=== PATIENT | female | born 1975 ===

== ENCOUNTER 2016-12-12 21:19 | Emergency (ER) | payer MEDICAID, OTHER ==
[2016-12-12 21:39] VITALS: RESP 20
[2016-12-12 22:20] LABS: RBC URINE 16 /hpf (0-3); URINE BACTERIA FEW (<OCC); URINE BILIRUBIN NEGATIVE (NEGATIVE); URINE COLOR Yellow (YELLOW); URINE GLUCOSE (UA) NORMAL (Normal); URINE KETONE NEGATIVE (NEGATIVE); URINE LEUKOCYTE ESTERASE 2+ Leu/uL (Negative); URINE PROTEIN NEGATIVE (NEGATIVE); URINE UROBILINOGEN NORMAL mg/dL (0.2-1.0); WBC URINE 15 /hpf (0-5)
[2016-12-12 22:23] LABS: URINE BLOOD 2+ (NEGATIVE)
[2016-12-12] MEDS ORDERED: Naproxen 550 mg Tab PO STA (22:33)
--- NOTE | 2016-12-12 22:34 | C.PDOC ---
Time Seen by Provider: 12/12/16 21:56 Chief Complaint (Nursing): Cough, Cold, Congestion History Per: Patient, Family Onset/Duration Of Symptoms: Days (2) Current Symptoms Are (Timing): Still Present Associated Symptoms: Cough, Sputum, Nasal Congestion Severity: Moderate Additional History Per: Prior Records Past Medical History Reviewed: Historical Data, Nursing Documentation, Vital Signs Vital Signs: Last Vital Signs Temp 98.4 F 12/12/16 21:38 Pulse 72 12/12/16 21:38 Resp 20 12/12/16 21:38 BP 106/68 12/12/16 21:38 Pulse Ox 98 12/12/16 21:38 - Medical History PMH: No Chronic Diseases Family History: States: Unknown Family Hx - Social History Hx Tobacco Use: Yes Hx Alcohol Use: No Hx Substance Use: No - Immunization History Hx Tetanus Toxoid Vaccination: No Hx Influenza Vaccination: No Hx Pneumococcal Vaccination: No Review Of Systems Except As Marked, All Systems Reviewed And Found Negative. Constitutional: Negative for: Fever, Weakness ENT: Positive for: Nose Congestion Cardiovascular: Negative for: Chest Pain Respiratory: Positive for: Cough, Sputum. Negative for: Shortness of Breath, Hemoptysis Gastrointestinal: Positive for: Abdominal Pain (suprapubic). Negative for: Vomiting, Diarrhea Genitourinary: Positive for: Dysuria Musculoskeletal: Negative for: Neck Pain, Back Pain Skin: Negative for: Rash Neurological: Negative for: Weakness, Numbness, Seizures, Altered Mental Status Physical Exam - Physical Exam Appears: Non-toxic, No Acute Distress Skin: Normal Color, Warm, Dry, No Rash Head: Atraumatic, Normacephalic Eye(s): bilateral: Normal Inspection, PERRL, EOMI Ear(s): Bilateral: Normal Throat: Normal Neck: Normal ROM, Supple Cardiovascular: Rhythm Regular Respiratory: Normal Breath Sounds, No Accessory Muscle Use Gastrointestinal/Abdominal: Soft, No Tenderness Back: No CVA Tenderness Extremity: Normal ROM, No Pedal Edema, No Calf Tenderness Neurological/Psych: Oriented x3, Normal Motor, Normal Sensation ED Course And Treatment - Laboratory Results Interpretation Of Abnormal: Possible UTI Urine POC: Negative O2 Sat by Pulse Oximetry: 98 Pulse Ox Interpretation: Normal - Radiology CXR: Interpreted by Me, Viewed By Me CXR Interpretation: Yes: No Acute Disease Disposition Counseled Patient/Family Regarding: Studies Performed, Diagnosis, Need For Followup, Rx Given, Smoking Cessation - Disposition Referrals: [facility] [Outside] Disposition: HOME/ ROUTINE Disposition Time: 22:34 Condition: STABLE Additional Instructions: Drink plenty of fluids. Stop smoking. Follow up in the clinic for further evaluation and treatment. Return to the ER if you develop shortness of breath, fever, vomiting, worsening of symptoms or if you have any other concerns. Prescriptions: Sulfamethoxazole/Trimethoprim [Bactrim DS 800 mg-160 mg] 1 tab PO BID #10 tab Instructions: Cold Symptoms (ED), Urinary Tract Infection in Women (ED) Print Language: MALTESE - Clinical Impression Clinical Impression: Bronchitis, UTI (urinary tract infection)
[2016-12-12] MEDS ORDERED: Naproxen 550 mg Tab PO ONE (22:48)
[2016-12-12 22:51] VITALS: BP 111/71; PULSE 77; TEMP 98.1; O2SAT 99
--- NOTE | 2016-12-13 08:15 | RAD ---
HISTORY: Productive cough COMPARISON: No prior. TECHNIQUE: Chest PA and lateral FINDINGS: LUNGS: Mild venous congestion. Patchy increased markings at the medial right lung base may represent superimposed atelectasis and or subtle infiltrate. Bibasilar breast and nipple shadows. PLEURA: No significant pleural effusion identified. No pneumothorax apparent. CARDIOVASCULAR: Normal. OSSEOUS STRUCTURES: No significant abnormalities. VISUALIZED UPPER ABDOMEN: Normal. OTHER FINDINGS: None. IMPRESSION: Mild venous congestion. Patchy increased markings at the medial right lung base may represent superimposed atelectasis and or subtle infiltrate. Bibasilar breast and nipple shadows.
== END 2016-12-12 22:53 | disposition home or self-care (01) ==
LOC: C.ER 21:19
DX: J40 Bronchitis, not specified as acute or chronic (principal); Z72.0 Tobacco use; N39.0 Urinary tract infection, site not specified

== ENCOUNTER 2017-03-14 22:23 | Emergency (ER) | payer OTHER ==
[2017-03-14 22:33] VITALS: BP 116/78; PULSE 74; RESP 18; TEMP 98.7; O2SAT 99
[2017-03-14 22:57] LABS: RBC URINE 8 /hpf (0-3); URINE BACTERIA RARE (<OCC); URINE BILIRUBIN NEGATIVE (NEGATIVE); URINE COLOR Yellow (YELLOW); URINE GLUCOSE (UA) NORMAL (Normal); URINE KETONE NEGATIVE (NEGATIVE); URINE LEUKOCYTE ESTERASE NEG Leu/uL (Negative); URINE PROTEIN NEGATIVE (NEGATIVE); WBC URINE 1 /hpf (0-5)
[2017-03-14 22:58] LABS: URINE BLOOD 2+ (NEGATIVE)
--- NOTE | 2017-03-14 23:18 | C.PDOC ---
History Of Present Illness 41 y/o female c/o suprapubic pain since her onset of menses 4 days prior. Notes usually getting the same pain with her period, yet this lasted longer which concerned her. Patient reports increased suprapubic pressure during urination. Denies dysuria, vaginal discharge, fever, chills, nausea, vomiting, or any other complaints. Patient is still bleeding due to menses. Took no medication for pain. Time Seen by Provider: 03/14/17 22:35 Chief Complaint (Nursing): Female Genitourinary History Per: Patient History/Exam Limitations: no limitations Onset/Duration Of Symptoms: Days (4) Current Symptoms Are (Timing): Still Present Severity: Mild Quality Of Discomfort: Gas Associated Symptoms: denies: Fever, Chills Alleviating Factors: None Recent travel outside of the [place]: No Additional History Per: Patient Abnormal Vaginal Bleeding: No Past Medical History Reviewed: Historical Data, Nursing Documentation, Vital Signs Vital Signs: Last Vital Signs Temp 98.7 F 03/14/17 22:29 Pulse 74 03/14/17 22:29 Resp 18 03/14/17 22:29 BP 116/78 03/14/17 22:29 Pulse Ox 99 03/15/17 01:36 Family History: States: Unknown Family Hx - Social History Hx Tobacco Use: Yes Hx Alcohol Use: No Hx Substance Use: No - Immunization History Hx Tetanus Toxoid Vaccination: No Hx Influenza Vaccination: No Hx Pneumococcal Vaccination: No Review Of Systems Constitutional: Negative for: Fever, Chills Gastrointestinal: Positive for: Abdominal Pain (Suprapubic). Negative for: Nausea, Vomiting Genitourinary: Positive for: Vaginal Bleeding (Due to menses). Negative for: Dysuria, Vaginal Discharge Physical Exam - Physical Exam Appears: Non-toxic, No Acute Distress Skin: Warm, Dry Head: Atraumatic, Normacephalic Cardiovascular: Rhythm Regular Respiratory: Normal Breath Sounds, No Rales, No Rhonchi, No Wheezing Gastrointestinal/Abdominal: Soft, Tenderness (Mid-suprapubic area), No Guarding , No Rebound, Other (Obese) Pelvic: Other (Not performed due to menstral flow) Neurological/Psych: Oriented x3, Normal Speech, Normal Cognition ED Course And Treatment O2 Sat by Pulse Oximetry: 99 (RA) Pulse Ox Interpretation: Normal Progress Note: Impression: 41 y/o female c/o suparapubic pain since onset of menses 4 days ago. Plans: UA, Blood work up, Motrin. UA: negative for infection and . Patient is in no acute distress at this time. Patient advised she will feel better with Motrin and advised to follow up with PMD for further evaluation and to return if symtoms worsens. Disposition Counseled Patient/Family Regarding: Diagnosis, Need For Followup, Rx Given - Disposition Referrals: [email or web address] [Outside] [facility] [Outside] Disposition: HOME/ ROUTINE Disposition Time: 23:15 Condition: STABLE Additional Instructions: Kori motrin si dolor Sigue en la clinica de mujeres Regresa si peor Prescriptions: Ibuprofen [Motrin] 600 mg PO Q6H #30 tab Instructions: Pelvic Pain in Women (ED) Forms: [employer] (Syriac) Print Language: ROMANIAN - Clinical Impression Clinical Impression: Pelvic pain, Dysmenorrhea - Scribe Statement The provider has reviewed the documentation as recorded by the Princessibmicky polk All medical record entries made by the Princessibmicky were at my direction and personally dictated by me. I have reviewed the chart and agree that the record accurately reflects my personal performance of the history, physical exam, medical decision making, and the department course for this patient. I have also personally directed, reviewed, and agree with the discharge instructions and disposition.
== END 2017-03-14 23:24 | disposition home or self-care (01) ==
LOC: C.ER 22:23 → SUPCPDRO 22:23 → C.ER 23:24
DX: N94.6 Dysmenorrhea, unspecified (principal)

== ENCOUNTER 2017-12-08 11:44 | Emergency (ER) | payer OTHER ==
[2017-12-08 11:52] VITALS: O2SAT 98
[2017-12-08 12:34] LABS: SQUAMOUS EPITHIAL 1 /hpf (0-5); URINE BILIRUBIN NEGATIVE (NEGATIVE); URINE BLOOD 1+ (NEGATIVE); URINE CLARITY Clear (Clear); URINE COLOR Yellow (YELLOW); URINE GLUCOSE (UA) NORMAL (Normal); URINE LEUKOCYTE ESTERASE NEG Leu/uL (Negative); URINE PROTEIN NEGATIVE (NEGATIVE); URINE UROBILINOGEN NORMAL mg/dL (0.2-1.0)
[2017-12-08 12:44] LABS: HCG,QUALITATIVE URINE NEGATIVE (NEGATIVE)
--- NOTE | 2017-12-08 13:14 | C.PDOC ---
History Of Present Illness 42 y/o female presents to ED with complaints of lower abdominal pain for 3 days associated with urinary frequency. Patient states last bowel movement was earlier today and was normal. Patient reports she was recently tested for UTI and was given Cipro which she took 1 dose of but didnt think it was helping. Patient denies dysuria, vaginal bleeding, vaginal discharge, n/v/d, fever, back pain or any other complaints at this time. LMP 2 days ago as per patient. Time Seen by Provider: 12/08/17 12:36 Chief Complaint (Nursing): Abdominal Pain History Per: Patient, Wind Commissioning Technician (Abi Floyd) History/Exam Limitations: no limitations Onset/Duration Of Symptoms: Days Current Symptoms Are (Timing): Still Present Location Of Pain/Discomfort: Other (pelvic pain) Past Medical History Reviewed: Historical Data, Nursing Documentation, Vital Signs Vital Signs: Last Vital Signs Temp 98.2 F 12/08/17 16:19 Pulse 80 12/08/17 16:19 Resp 18 12/08/17 16:19 BP 112/72 12/08/17 16:19 Pulse Ox 98 12/08/17 16:19 - Medical History PMH: No Chronic Diseases Surgical History: No Surg Hx Family History: States: No Known Family Hx - Social History Hx Tobacco Use: Yes Hx Alcohol Use: No Hx Substance Use: No - Immunization History Hx Tetanus Toxoid Vaccination: No Hx Influenza Vaccination: No Hx Pneumococcal Vaccination: No Review Of Systems Constitutional: Negative for: Fever, Chills Gastrointestinal: Negative for: Nausea, Vomiting Genitourinary: Positive for: Frequency, Pelvic Pain. Negative for: Dysuria, Vaginal Discharge, Vaginal Bleeding Musculoskeletal: Negative for: Back Pain Skin: Negative for: Rash Neurological: Negative for: Weakness, Numbness Physical Exam - Physical Exam Appears: Non-toxic, No Acute Distress Skin: Warm, Dry, No Rash Head: Atraumatic, Normacephalic Eye(s): bilateral: Normal Inspection, EOMI Nose: Normal Oral Mucosa: Moist Neck: Normal ROM, Supple Cardiovascular: Rhythm Regular Respiratory: Normal Breath Sounds, No Rales, No Rhonchi, No Wheezing Gastrointestinal/Abdominal: Soft, Tenderness (suprapubic tenderness), No Guarding, No Rebound Back: No CVA Tenderness, No Vertebral Tenderness Extremity: Normal ROM Neurological/Psych: Oriented x3, Normal Speech, Normal Cognition ED Course And Treatment - Laboratory Results Result Diagrams: 12/08/17 13:21 12/08/17 13:21 O2 Sat by Pulse Oximetry: 98 (RA) Pulse Ox Interpretation: Normal Progress Note: Blood work, IV fluids, obstructive series and UA ordered. Toradol administered. On re eval patient states pain has improved. Tolerating PO. Afebrile. Abdomen remains soft, nontender. Discussed with pt signs and symptoms of concern and limitations of work up. Pt requests to be discharged noting she is asymptomatic. Instructed to return to ER if symptoms persist or worsen. Disposition - Disposition Referrals: [facility] [Outside] Disposition: HOME/ ROUTINE Disposition Time: 15:42 Condition: STABLE Additional Instructions: Increase you fluids and fiber in your diet. Follow up with PMD in 1-2 days. Return to ER if symptoms persist or worsen. Aumente denise lquidos y fibra en [place] dieta. Korey un seguimiento con PMD en 1-2 d as. Regrese a la nanda de emergencias si los sntomas persisten o empeoran. Prescriptions: Polyethylene Glycol 3350 [Miralax] 17 gm PO DAILY #85 gm Instructions: Acute Abdomen (Belly Pain), Adult (DC) Forms: [employer] (Cymro) Print Language: SYRIAN - Clinical Impression Clinical Impression: Abdominal pain - PA / JUDICIAL REPORTER / Resident Statement MD/DO has reviewed & agrees with the documentation as recorded. - Scribe Statement The provider has reviewed the documentation as recorded by the Scribe Mariel Overton All medical record entries made by the Princessibe were at my direction and personally dictated by me. I have reviewed the chart and agree that the record accurately reflects my personal performance of the history, physical exam, medical decision making, and the department course for this patient. I have also personally directed, reviewed, and agree with the discharge instructions and disposition.
[2017-12-08 13:29] LABS: BASO % 0.5 % (0.0-2.0); EOS # 0.1 K/uL (0.0-0.7); EOS % 1.2 % (0.0-4.0); HEMOGLOBIN 11.9 g/dL (11.0-16.0); LYMPH # 2.2 K/uL (1.0-4.3); LYMPH % 28.6 % (20.0-40.0); MEAN CELL VOLUME 90.4 fL (81.0-99.0); MEAN CORPUSCULAR HEMOGLOBIN 31.4 pg (27.0-31.0); MEAN CORPUSCULAR HGB CONC 34.7 g/dL (33.0-37.0); MEAN PLATELET VOLUME 8.2 fL (7.2-11.7); MONO # 0.5 K/uL (0.0-0.8); MONO % 6.3 % (0.0-10.0); NEUT # 4.9 K/uL (1.8-7.0); NEUT % 63.4 % (50.0-75.0); RBC 3.78 Mil/uL (3.80-5.20); RED CELL DISTRIBUTION WIDTH 12.8 % (11.5-14.5); WHITE BLOOD COUNT 7.8 K/uL (4.8-10.8)
[2017-12-08 13:43] LABS: ALB/GLOB RATIO 1.2 (1.0-2.1); ALBUMIN 3.9 g/dL (3.5-5.0); ALT/SGPT 27 U/L (9-52); AST/SGOT 17 U/L (14-36); BLOOD UREA NITROGEN 15 mg/dL (7-17); CALCIUM 9.1 mg/dl (8.6-10.4); GFR AFRICAN-AMERICAN > 60; GFR NON-AFRICAN AMERICAN > 60; LIPASE 39 U/L (23-300)
--- NOTE | 2017-12-08 14:48 | RAD ---
PROCEDURE: Radiographs of the chest and abdomen (obstructive series) HISTORY: abd pain COMPARISON: No prior. TECHNIQUE: AP radiograph of the chest, with upright and supine radiographs of the abdomen. FINDINGS: CHEST: Lungs: Clear. Cardiovascular: Normal size heart. No pulmonary vascular congestion. Pleura: No pleural fluid. No pneumothorax. Other findings: None. ABDOMEN AND PELVIS: Bowel: Unremarkable bowel gas pattern. No evidence of mechanical obstruction. Free air: None. Bones: Unremarkable. Other findings: None. IMPRESSION: Unremarkable radiographs of chest and abdomen. No evidence of mechanical bowel obstruction.
[2017-12-08 16:23] VITALS: BP 112/72; PULSE 80; RESP 18; TEMP 98.2
== END 2017-12-08 16:23 | disposition home or self-care (01) ==
LOC: C.ER 11:44
DX: R10.30 Lower abdominal pain, unspecified (principal)
CPT/HCPCS: 74022; 80053; 81001; 83690; 84703; 85025; 96374; 99284; J1885

== ENCOUNTER 2018-05-06 15:52 | Emergency (ER) | payer SELFPAY ==
[2018-05-06 16:27] VITALS: O2SAT 100
[2018-05-06] MEDS ORDERED: Sodium Chloride 0.9% 1,000 ML IV ONE (16:38)
[2018-05-06 16:57] LABS: BASO # 0.1 K/uL (0.0-0.2); BASO % 0.7 % (0.0-2.0); EOS # 0.1 K/uL (0.0-0.7); EOS % 1.6 % (0.0-4.0); HEMOGLOBIN 12.1 g/dL (11.0-16.0); LYMPH # 2.5 K/uL (1.0-4.3); LYMPH % 32.5 % (20.0-40.0); MEAN CELL VOLUME 89.1 fL (81.0-99.0); MEAN CORPUSCULAR HEMOGLOBIN 30.8 pg (27.0-31.0); MEAN CORPUSCULAR HGB CONC 34.6 g/dL (33.0-37.0); MEAN PLATELET VOLUME 8.4 fL (7.2-11.7); MONO # 0.4 K/uL (0.0-0.8); MONO % 5.8 % (0.0-10.0); NEUT # 4.6 K/uL (1.8-7.0); NEUT % 59.4 % (50.0-75.0); RBC 3.92 Mil/uL (3.80-5.20); RED CELL DISTRIBUTION WIDTH 12.7 % (11.5-14.5); WHITE BLOOD COUNT 7.7 K/uL (4.8-10.8)
[2018-05-06 16:59] LABS: SQUAMOUS EPITHIAL 1 /hpf (0-5); URINE BILIRUBIN NEGATIVE (NEGATIVE); URINE BLOOD 3+ (NEGATIVE); URINE CLARITY Clear (Clear); URINE COLOR Yellow (YELLOW); URINE GLUCOSE (UA) NORMAL (Normal); URINE LEUKOCYTE ESTERASE NEG Leu/uL (Negative); URINE PROTEIN NEGATIVE (NEGATIVE); URINE UROBILINOGEN NORMAL mg/dL (0.2-1.0)
[2018-05-06 17:19] LABS: ALB/GLOB RATIO 1.4 (1.0-2.1); ALBUMIN 4.1 g/dL (3.5-5.0); ALT/SGPT 24 U/L (9-52); AST/SGOT 13 U/L (14-36); BLOOD UREA NITROGEN 13 mg/dL (7-17); CALCIUM 9.1 mg/dl (8.6-10.4); GFR NON-AFRICAN AMERICAN > 60; LIPASE 49 U/L (23-300)
[2018-05-06] MEDS ORDERED: Sodium Chloride 0.9% 1,000 ML ONE (17:46)
[2018-05-06] MEDS ORDERED: Iodixanol 320 MG/ML 100 ML BOTTLE IV ONE (18:16)
--- NOTE | 2018-05-06 18:24 | C.PDOC ---
Addendum entered and electronically signed by Cele Gregory MD 05/06/18 19:46: Disposition Counseled Patient/Family Regarding: Studies Performed, Diagnosis, Need For Followup, Rx Given Clinical Impression: Abdominal pain, Uterine fibroid Disposition: HOME/ ROUTINE Disposition Time: 19:00 Condition: FAIR Instructions: Acute Abdomen (Belly Pain), Adult (DC), Uterine Fibroids (DC) Referrals: [facility] [Outside] [facility] [Outside] Stand Alone Forms: [employer] (Bulgarian) Print Language: SLOVENIAN Addendum entered and electronically signed by Cele Gregory MD 05/06/18 19:42: Disposition Counseled Patient/Family Regarding: Studies Performed, Diagnosis, Need For Followup Clinical Impression: Abdominal pain, Uterine fibroid Disposition: HOME/ ROUTINE Disposition Time: 19:00 Condition: FAIR Instructions: Uterine Fibroids (DC), Acute Abdomen (Belly Pain), Adult (DC) Referrals: [facility] [Outside] [facility] [Outside] Stand Alone Forms: [employer] (Bulgarian) Addendum Addendum: 05/06/18 19:41 Upon provider reevaluation patient is feeling better, is medically stable, and requires no further treatment in the ED at this time. Patient will be discharged home . Counseling was provided and all questions were answered regarding diagnosis and need for follow up with the referred clinic. There is agreement to discharge plan. Return if symptoms persist or worsen. Original Note: History Of Present Illness 43 years old female presents to ED for complaints of LLQ abdominal pain that began 1 day ago. Patient describes pain as sharp in nature. Denies vaginal bleeding or discharge, hematuria, dysuria, fever, nausea, vomiting, or diarrhea. Patient reports she has been eating well. Chief Complaint (Nursing): Abdominal Pain History Per: Patient History/Exam Limitations: no limitations Onset/Duration Of Symptoms: Days (1) Current Symptoms Are (Timing): Still Present Location Of Pain/Discomfort: LLQ Quality Of Discomfort: Sharp Associated Symptoms: denies: Fever, Chills, Urinary Symptoms Exacerbating Factors: None Alleviating Factors: None Last Bowel Movement: Today Recent travel outside of the [place]: No Past Medical History Reviewed: Historical Data, Nursing Documentation, Vital Signs Vital Signs: Last Vital Signs Temp 98 F 05/06/18 16:25 Pulse 68 05/06/18 16:25 Resp 16 05/06/18 16:25 BP 119/70 05/06/18 16:25 Pulse Ox 100 05/06/18 16:25 - Medical History PMH: No Chronic Diseases Family History: States: No Known Family Hx - Social History Hx Tobacco Use: Yes Hx Alcohol Use: Yes Hx Substance Use: No - Immunization History Hx Tetanus Toxoid Vaccination: No Hx Influenza Vaccination: No Hx Pneumococcal Vaccination: No Review Of Systems Constitutional: Negative for: Fever, Chills Gastrointestinal: Positive for: Abdominal Pain (LLQ). Negative for: Nausea, Vomiting, Diarrhea Genitourinary: Negative for: Dysuria, Hematuria, Vaginal Discharge, Vaginal Bleeding Skin: Negative for: Rash Neurological: Negative for: Weakness, Numbness Physical Exam - Physical Exam Appears: Non-toxic, No Acute Distress Skin: Normal Color, Warm, Dry, No Rash Head: Atraumatic, Normacephalic Eye(s): bilateral: Normal Inspection, PERRL, EOMI Oral Mucosa: Moist Neck: Normal ROM, Supple Chest: Symmetrical, No Tenderness Cardiovascular: Rhythm Regular, No Murmur Respiratory: Normal Breath Sounds, No Decreased Breath Sounds, No Rales, No Rho nchi, No Wheezing Gastrointestinal/Abdominal: Bowel Sounds (Active ), Soft, Tenderness (Minimal LLQ point tenderness ), No Guarding, No Rebound Extremity: Normal ROM Extremity: Bilateral: Atraumatic, Normal Color And Temperature, Normal ROM Pulses: Left Radial: Normal, Right Radial: Normal Neurological/Psych: Oriented x3, Normal Speech Gait: Steady ED Course And Treatment - Laboratory Results Result Diagrams: 05/06/18 16:54 05/06/18 16:54 O2 Sat by Pulse Oximetry: 100 (RA) Pulse Ox Interpretation: Normal Medical Decision Making Medical Decision Making: Plan: * IV fluids * Toradol * Blood work * Urine Culture * Urinalysis * CT abdomen/Pelvis Disposition - Disposition Disposition Time: 19:00 Condition: STABLE Forms: [employer] (Bulgarian) - Clinical Impression Clinical Impression: Abdominal pain - Scribe Statement The provider has reviewed the documentation as recorded by the Scribe Chasity Higgins All medical record entries made by the Scribe were at my direction and personally dictated by me. I have reviewed the chart and agree that the record accurately reflects my personal performance of the history, physical exam, medical decision making, and the department course for this patient. I have also personally directed, reviewed, and agree with the discharge instructions and disposition.
[2018-05-06 20:18] VITALS: BP 112/65; PULSE 63; RESP 20; TEMP 98.9
--- NOTE | 2018-05-07 09:01 | CT ---
PROCEDURE: CT Abdomen and Pelvis with contrast HISTORY: LLQ tenderness COMPARISON: None. TECHNIQUE: CT scan of the abdomen pelvis was performed after the administration of IV and oral contrast. Coronal and sagittal reconstructions were also acquired. . Contrast Dose: 100 cc Visipaque 320 IV contrast Radiation dose: Total exam DLP = 1060.36 mGy-cm. FINDINGS: LOWER THORAX: Visualized lung bases demonstrate minimal posterior dependent bibasilar atelectasis. LIVER: Unremarkable. GALLBLADDER AND BILE DUCTS: Gallstones noted in the gallbladder. PANCREAS: Unremarkable. SPLEEN: Unremarkable. ADRENALS: Unremarkable. KIDNEYS AND URETERS: Unremarkable. No hydronephrosis. VASCULATURE: The aorta is normal in caliber. STOMACH AND BOWEL: There is no abnormal small or large bowel dilatation. APPENDIX: Normal appendix. PERITONEUM: Unremarkable. No free fluid. No free air. LYMPH NODES: There is no significant abdominal or pelvic lymphadenopathy. BLADDER: Unremarkable. REPRODUCTIVE: Uterus is heterogeneous in appearance with possible fibroids. There is an exophytic mass arising from the uterine fundus measuring approximately 6 x 5.1 cm, possibly a fibroid. Other etiologies not excluded. Tampon noted in the vagina. BONES: There are multiple sclerotic lesions: In the left iliac bone measuring 1.8 cm, in the left sacrum measuring 0.8 cm, in the left posterior acetabulum measuring 1.1 cm, in the right femoral head measuring 0.8 cm, and in the left femoral head measuring 0.5 cm. Findings favor bone islands. OTHER FINDINGS: None. IMPRESSION: Heterogeneous appearance of the uterus, possibly due to fibroids. Exophytic mass of the uterine fundus measuring 6 cm, also possibly fibroid. Recommend ultrasound pelvis for further evaluation. Cholelithiasis. Additional findings as above. Preliminary impression was provided by the Teleradiology service - [facility] Rad. Findings are concordant.
== END 2018-05-06 20:00 | disposition home or self-care (01) ==
LOC: C.ER 15:52
DX: D25.9 Leiomyoma of uterus, unspecified (principal); R10.9 Unspecified abdominal pain
CPT/HCPCS: 74177; 80053; 81001; 83690; 85025; 87086; 96361; 96374; 99285; J1885; J7030; Q9967

== ENCOUNTER 2018-05-07 22:27 | Emergency (ER) | payer SELFPAY ==
[2018-05-07] MEDS ORDERED: Oxycodone/Acetaminophen 5/325 mg Tab PO STA (23:09)
[2018-05-07] MEDS ORDERED: Oxycodone/Acetaminophen 5/325 mg Tab ONE (23:17)
[2018-05-08 00:09] VITALS: BP 102/70; PULSE 62; RESP 20; TEMP 98; O2SAT 98
--- NOTE | 2018-05-08 00:55 | C.PDOC ---
History Of Present Illness 43 year old female presents to the ER with a complaint of persistent lower abdominal pain. Patient was sen here yesterday in the ED and CT revealed fibroids. Denies nausea, vomiting, vaginal bleeding, or vaginal discharge. Patient has been taking motrin with some relief. Time Seen by Provider: 05/07/18 22:36 Chief Complaint (Nursing): Abdominal Pain History Per: Patient History/Exam Limitations: no limitations Onset/Duration Of Symptoms: Days Current Symptoms Are (Timing): Still Present Location Of Pain/Discomfort: Suprapubic Radiation Of Pain To:: None Quality Of Discomfort: Unable To Describe Associated Symptoms: denies: Nausea, Vomiting, Other (Vaginal bleeding, Vaginal discharge) Exacerbating Factors: None Alleviating Factors: None Recent travel outside of the [place]: No Abnormal Vaginal Bleeding: No Past Medical History Reviewed: Historical Data, Nursing Documentation, Vital Signs Vital Signs: Last Vital Signs Temp 98 F 05/08/18 00:07 Pulse 62 05/08/18 00:07 Resp 20 05/08/18 00:07 BP 102/70 05/08/18 00:07 Pulse Ox 98 05/08/18 00:07 Family History: States: No Known Family Hx - Social History Hx Tobacco Use: Yes Hx Alcohol Use: Yes Hx Substance Use: No - Immunization History Hx Tetanus Toxoid Vaccination: No Hx Influenza Vaccination: No Hx Pneumococcal Vaccination: No Review Of Systems Constitutional: Negative for: Fever, Chills Cardiovascular: Negative for: Chest Pain, Palpitations Respiratory: Negative for: Cough, Shortness of Breath Gastrointestinal: Positive for: Abdominal Pain. Negative for: Nausea, Vomiting Genitourinary: Negative for: Vaginal Discharge, Vaginal Bleeding Neurological: Negative for: Weakness, Numbness Physical Exam - Physical Exam Appears: Non-toxic Skin: Normal Color, Warm, Dry Head: Atraumatic, Normacephalic Eye(s): bilateral: Normal Inspection Oral Mucosa: Moist Neck: Normal, Supple Chest: Symmetrical, No Tenderness Cardiovascular: Rhythm Regular Respiratory: Normal Breath Sounds, No Rales, No Rhonchi, No Wheezing Gastrointestinal/Abdominal: Soft, No Tenderness Back: No CVA Tenderness Neurological/Psych: Oriented x3, Normal Speech ED Course And Treatment O2 Sat by Pulse Oximetry: 98 (Room air) Pulse Ox Interpretation: Normal Progress Note: Abdominal x-ray ordered. Percocet and toradol administered. Disposition - Disposition Referrals: [facility] [Outside] [facility] [Outside] Disposition: HOME/ ROUTINE Disposition Time: 00:15 Condition: IMPROVED Additional Instructions: SPENSER JACOBS, thank you for letting us take care of you today. The emergency medical care you received today was directed at your acute symptoms. If you were prescribed any medication, please fill it and take as directed. It may take several days for your symptoms to resolve. Return to the Emergency Department if your symptoms worsen, do not improve, or if you have any other problems. Please contact your doctor or call one of the physicians/clinics you have been referred to that are listed on the Patient Visit Information form that is included in your discharge packet. Bring any paperwork you were given at discharge with you along with any medications you are taking to your follow up visit. Our treatment cannot replace ongoing medical care by a primary care provider outside of the emergency department. Thank you for allowing the [facility] team to be part of your care today. Follow with the women's clinic this week for re-evaluation and further management. SPENSER JACOBS, anastacio por dejarnos cuidar de georgie gutierrez. La atencin mdica de emergencia que recibi hoy se dirigi a denise sntomas agudos. Si le recetaron algn medicamento, llnelo y tmelo segn las indicaciones. Los sntomas pueden tardar varios cardona en resolverse. Regrese al Departamento de Emergencias si denise sntomas empeoran, no mejoran o si tiene otros problemas. Comunquese con redmond mdico o llame a erma de los mdicos / clnicas a los que wilson sido referido que figuran en el formulario de Informacin de visita al paciente que se incluye en redmond paquete de sebastian. Lleve con usted a redmond consulta de seguimiento toda la documentacin que recibi del sebastian junto con los medicamentos que est tomando. Nuestro tratamiento no puede reemplazar la atencin mdica continua por parte de un proveedor de atencin primaria fuera del departamento de emergencias. Anastacio por permitir que el equipo de [facility] sea parte de redmond atencin hoy. Siga con la clnica de mujeres esta semana para reevaluar y administrar ms. Prescriptions: Docusate [Colace] 100 mg PO Q8 PRN #15 cap PRN Reason: Constipation traMADol [Ultram] 50 mg PO Q8 PRN #15 tab PRN Reason: Pain, Severe (8-10) Instructions: Constipation, Adult (DC), Uterine Fibroids (DC) Forms: Gen Discharge Inst Tanzanian, [employer] (Tanzanian) Print Language: PASHTO - Clinical Impression Clinical Impression: Constipation, Uterine fibroid - Scribe Statement The provider has reviewed the documentation as recorded by the Scribe Tyler Harris All medical record entries made by the Scribe were at my direction and personally dictated by me. I have reviewed the chart and agree that the record accurately reflects my personal performance of the history, physical exam, medical decision making, and the department course for this patient. I have also personally directed, reviewed, and agree with the discharge instructions and disposition.
--- NOTE | 2018-05-08 12:29 | RAD ---
Date of service: 05/07/2018 HISTORY: lower abdominal pain COMPARISON: 05/06/2018 CT abdomen and pelvis FINDINGS: BOWEL: Moderate stool retention especially right colon. No bowel obstruction. BONES: Multiple oval sclerotic lesions-without any additional oncological history-bone islands-favored. Bilateral SI joint sclerotic arthrosis. OTHER FINDINGS: None. IMPRESSION: Stool retention. No bowel obstruction suggested. Multiple pelvic sclerotic foci-without any additional oncological history-bone islands-favored. Bilateral sacroiliac sclerotic arthrosis
== END 2018-05-08 00:52 | disposition home or self-care (01) ==
LOC: C.ER 22:27
DX: K59.00 Constipation, unspecified (principal); D25.9 Leiomyoma of uterus, unspecified
CPT/HCPCS: 74018; 96372; 99284; J1885

== ENCOUNTER 2018-09-03 20:04 | Emergency (ER) | payer OTHER ==
[2018-09-03 20:16] VITALS: O2SAT 100
--- NOTE | 2018-09-03 21:04 | C.PDOC ---
History Of Present Illness 43 year old female who is 4 weeks , , present with lower abdominal pain since yesterday and states today after using the bathroom she wiped and noticed a little pinkish blood on the paper. Denies any other episodes of va ginal bleeding, fever, nausea, or vomiting. Patient has not had US for this , has an appointment for 09/20/18. Time Seen by Provider: 09/03/18 20:37 Chief Complaint (Nursing): Abdominal Pain History Per: Patient History/Exam Limitations: no limitations Onset/Duration Of Symptoms: Days Current Symptoms Are (Timing): Still Present Associated Symptoms: denies: Fever, Nausea, Vomiting Exacerbating Factors: None Alleviating Factors: None Recent travel outside of the [place]: No Abnormal Vaginal Bleeding: Yes Past Medical History Reviewed: Historical Data, Nursing Documentation, Vital Signs Vital Signs: Last Vital Signs Temp 97.8 F 09/03/18 20:11 Pulse 60 09/03/18 20:11 Resp 16 09/03/18 20:11 BP 116/60 09/03/18 20:11 Pulse Ox 100 09/03/18 20:11 Family History: States: Unknown Family Hx - Social History Hx Tobacco Use: Yes Hx Alcohol Use: Yes Hx Substance Use: No - Immunization History Hx Tetanus Toxoid Vaccination: No Hx Influenza Vaccination: No Hx Pneumococcal Vaccination: No Review Of Systems Constitutional: Negative for: Fever, Chills ENT: Negative for: Nose Discharge, Nose Congestion Cardiovascular: Negative for: Chest Pain, Palpitations Respiratory: Negative for: Cough, Shortness of Breath Gastrointestinal: Positive for: Abdominal Pain. Negative for: Nausea, Vomiting Genitourinary: Positive for: Vaginal Bleeding Musculoskeletal: Negative for: Back Pain Neurological: Negative for: Weakness, Numbness Physical Exam - Physical Exam Appears: Non-toxic Skin: Normal Color, Warm, Dry Head: Atraumatic, Normacephalic Eye(s): bilateral: Normal Inspection Oral Mucosa: Moist Neck: Normal, Supple Chest: Symmetrical, No Tenderness Cardiovascular: Rhythm Regular Respiratory: Normal Breath Sounds, No Rales, No Rhonchi, No Wheezing Gastrointestinal/Abdominal: Soft, No Tenderness Back: No CVA Tenderness Neurological/Psych: Oriented x3, Normal Speech ED Course And Treatment - Laboratory Results Result Diagrams: 09/03/18 21:08 09/03/18 21:08 O2 Sat by Pulse Oximetry: 100 (Room air) Pulse Ox Interpretation: Normal - CT Scan/US US Other Rad Studies (CT/US): Read By Radiologist, Radiology Report Reviewed CT/US Interpretation: EXAM: US Obstetrical, Complete <14 weeks. CLINICAL HISTORY: 4 weeks , vaginal bleeding. TECHNIQUE: Transvaginal and transabdominal imaging of the maternal pelvis and a <14 week gestation with image documentation. COMPARISON: None provided. FINDINGS: GESTATION: UTERUS: Uterus measures 11.1 x 6.9 x 7.0 cm. There is a fibroid within the superior portion of the uterus measuring 6.1 x 5.4 x 6.6 cm. There is a posterior fibroid measuring 2.4 x 2.2 x 2.2 cm. A 2nd posterior fibroid measures 1.5 x 1.1 x 1.6 cm. CERVIX: Cervix measures 2.9 cm and appears closed. OVARIES: Unremarkable. No mass. FREE FLUID: No free fluid. MISCELLANEOUS: A gestational sac is present. A yolk sac is present. Mean sac diameter measures 1.3 cm compatible with an estimated ultrasound age of 5.4 weeks. No pole is seen. It is unclear whether this is due to the early phase of the gestation. Consider follow up imaging in approximately 1-2 weeks to demonstrate the presence of pole and heart motion if clinically indicated. Right ovary measures 2.4 x 1.5 x 1.9 cm. Left ovary measures 3.1 x 2.0 x 2.6 cm. Left ovary demonstrates a corpus luteum cyst measuring 2.0 cm. Both ovaries demonstrate normal Doppler flow. IMPRESSION: 1. Multi fibroid uterus. 2. A small gestational sac is present consistent with an estimated ultrasound age of 5.4 weeks. 3. No pole is seen. It is unclear whether this is due to the early phase of the gestation. Consider follow up imaging in approximately 1-2 weeks to demonstrate the presence of pole and heart motion if clinically indicated. Medical Decision Making Medical Decision Making: Transvaginal pelvic u/s done. Results reviewed and discussed with patient. Advised keeping OB appointment on 09/20 as she will need repeat ultrasound. Return to the ED for any new or worsening symptoms. Disposition - Disposition Disposition: HOME/ ROUTINE Disposition Time: 23:58 Condition: STABLE Additional Instructions: SPENSER JACOBS, thank you for letting us take care of you today. Your provider was Niki Jacobs MD and you were treated for 6 WKS PREG/BLEEDING. The emergency medical care you received today was directed at your acute symptoms. If you were prescribed any medication, please fill it and take as directed. It may take several days for your symptoms to resolve. Return to the Emergency Department if your symptoms worsen, do not improve, or if you have any other problems. Please contact your doctor or call one of the physicians/clinics you have been referred to that are listed on the Patient Visit Information form that is included in your discharge packet. Bring any paperwork you were given at discharge with you along with any medications you are taking to your follow up visit. Our treatment cannot replace ongoing medical care by a primary care provider outside of the emergency department. Thank you for allowing the [facility] team to be part of your care today. If you had an X-Ray or CT scan: A Radiologist will review the ED reading if any change in treatment is needed we will contact you. If you had a blood, urine, or wound culture: It will take several days for the results, if any change in treatment is needed we will contact you. If you had an STI test: It will take 48 hours for the results. Please call after 1 week if you have not heard back. Instructions: Threatened Miscarriage (DC) Forms: [facility] (Telugu) Print Language: BURMESE - Clinical Impression Clinical Impression: Threatened - Scribe Statement The provider has reviewed the documentation as recorded by the Scribe Tyler Harris All medical record entries made by the Scribe were at my direction and personally dictated by me. I have reviewed the chart and agree that the record accurately reflects my personal performance of the history, physical exam, medical decision making, and the department course for this patient. I have also personally directed, reviewed, and agree with the discharge instructions and disposition.
[2018-09-03 21:13] LABS: BASO % 0.4 % (0.0-2.0); EOS # 0.1 K/uL (0.0-0.7); EOS % 0.9 % (0.0-4.0); HEMOGLOBIN 12.3 g/dL (11.0-16.0); LYMPH # 2.3 K/uL (1.0-4.3); LYMPH % 27.2 % (20.0-40.0); MEAN CELL VOLUME 90.5 fL (81.0-99.0); MEAN CORPUSCULAR HEMOGLOBIN 30.4 pg (27.0-31.0); MEAN CORPUSCULAR HGB CONC 33.6 g/dL (33.0-37.0); MEAN PLATELET VOLUME 8.1 fL (7.2-11.7); MONO # 0.6 K/uL (0.0-0.8); MONO % 7.1 % (0.0-10.0); NEUT # 5.5 K/uL (1.8-7.0); NEUT % 64.4 % (50.0-75.0); RBC 4.03 Mil/uL (3.80-5.20); WHITE BLOOD COUNT 8.5 K/uL (4.8-10.8)
[2018-09-03 21:31] LABS: BLOOD UREA NITROGEN 10 mg/dL (7-17); CALCIUM 8.7 mg/dl (8.6-10.4); GFR NON-AFRICAN AMERICAN > 60
[2018-09-03 21:46] LABS: SQUAMOUS EPITHIAL 1 /hpf (0-5); URINE BACTERIA OCC (<OCC); URINE BILIRUBIN NEGATIVE (NEGATIVE); URINE BLOOD 1+ (NEGATIVE); URINE CLARITY Hazy (Clear); URINE COLOR Yellow (YELLOW); URINE GLUCOSE (UA) NORMAL (Normal); URINE LEUKOCYTE ESTERASE NEG Leu/uL (Negative); URINE PROTEIN NEGATIVE (NEGATIVE); URINE UROBILINOGEN NORMAL mg/dL (0.2-1.0)
[2018-09-03 22:58] VITALS: RESP 18
[2018-09-04 00:09] VITALS: BP 99/60; PULSE 84; TEMP 98.7
--- NOTE | 2018-09-04 10:48 | US ---
Date of service: 09/03/2018 Indication: 4w , vaginal bleeding Comparison: Pelvis ultrasound performed 05/09/18 Technique: Real-time transabdominal pelvic ultrasound was performed. In addition a transvaginal pelvic ultrasound was necessary to better depict pelvic anatomy. Findings: The uterus measures approximately 11.1 x 6.9 x 7.0 cm. 6.1 x 5.4 x 6.6 cm probable left uterine fibroid; 2.4 x 2.2 x 2.2 cm and 1.5 x 1.1 x 1.6 cm posterior uterine fibroids. Anteverted. Cervix length measures approximately 2.9 cm. There is a single intrauterine fetus present. The gestational sac measures 1.3 cm and is compatible with a gestational age of 5 weeks 4 days. 7 mm yolk sac. pole is not identified. 3.3 x 2.1 x 2.6 cm probable subchorionic hemorrhage. The right ovary measures 2.4 x 1.5 x 1.9 cm. The left ovary measures 3.1 x 2.0 x 2.6 cm and contains 2 cm probable corpus luteal cyst. Blood flow was demonstrated to both ovaries. Impression: Small gestational sac consistent with gestational age 5 weeks 4 days. 7 mm yolk sac. No evidence of pole. Recommend clinical correlation including diesel machinist consultation and close interval follow-up. 3.3 x 2.1 x 2.6 cm probable subchorionic hemorrhage. Fibroid uterus. Preliminary impression was provided by [employer]
== END 2018-09-04 00:09 | disposition home or self-care (01) ==
LOC: C.ER 20:04
DX: O20.0 Threatened abortion (principal); Z3A.01 Less than 8 weeks gestation of pregnancy

== ENCOUNTER 2018-09-20 10:29 | Outpatient (CLI) | payer OTHER | END 2018-09-20 10:30 | disposition home or self-care (01) | LOC: C.USIC 10:30 | DX: N91.2 Amenorrhea, unspecified (principal) ==

== ENCOUNTER 2018-09-26 04:05 | Emergency (ER) | payer OTHER ==
[2018-09-26] MEDS ORDERED: Sodium Chloride 0.9% 1,000 ML IV ONE (05:04)
--- NOTE | 2018-09-26 05:04 | C.PDOC ---
History Of Present Illness Patient who is 9 weeks presents complaining of vaginal bleeding and suprapubic discomfort. She had pelvic US done on 09/19/18 which showed IUP at 6 weeks 2 days by crown rump with no heart detected. Denies fever, chills, nausea, or vomiting. Time Seen by Provider: 09/26/18 05:04 Chief Complaint (Nursing): Abdominal Pain History Per: Patient History/Exam Limitations: no limitations Onset/Duration Of Symptoms: Days Current Symptoms Are (Timing): Still Present Severity: Moderate Pain Scale Rating Of: 4 Location Of Pain/Discomfort: Suprapubic Quality Of Discomfort: Unable To Describe Exacerbating Factors: None Alleviating Factors: None Recent travel outside of the [place]: No Abnormal Vaginal Bleeding: Yes Past Medical History Reviewed: Historical Data, Nursing Documentation, Vital Signs Vital Signs: Last Vital Signs Temp 98.2 F 09/26/18 04:13 Pulse 71 09/26/18 04:13 Resp 16 09/26/18 04:13 BP 114/62 09/26/18 04:13 Pulse Ox 98 09/26/18 04:13 Family History: States: No Known Family Hx - Social History Hx Tobacco Use: Yes Hx Alcohol Use: No Hx Substance Use: No - Immunization History Hx Tetanus Toxoid Vaccination: No Hx Influenza Vaccination: No Hx Pneumococcal Vaccination: No Review Of Systems Constitutional: Negative for: Fever, Chills Cardiovascular: Negative for: Chest Pain, Palpitations Respiratory: Negative for: Cough, Shortness of Breath Gastrointestinal: Positive for: Abdominal Pain. Negative for: Nausea, Vomiting Genitourinary: Positive for: Vaginal Bleeding Neurological: Negative for: Weakness, Numbness Physical Exam - Physical Exam Appears: Non-toxic Skin: Warm, Dry Head: Normacephalic Oral Mucosa: Moist Chest: Symmetrical, No Tenderness Cardiovascular: Rhythm Regular Respiratory: No Rales, No Rhonchi, No Wheezing Gastrointestinal/Abdominal: Soft, Tenderness (suprapubic), No Guarding, No Rebou nd Neurological/Psych: Oriented x3 ED Course And Treatment - Laboratory Results Result Diagrams: 09/26/18 05:16 09/26/18 05:16 O2 Sat by Pulse Oximetry: 98 (Room air) Pulse Ox Interpretation: Normal Progress Note: Blood work and urinalysis ordered. IV fluids administered. Disposition Counseled Patient/Family Regarding: Studies Performed, Diagnosis - Disposition Disposition Time: 05:04 Condition: FAIR Forms: [facility] (Albanian) - Clinical Impression Clinical Impression: Miscarriage - Scribe Statement The provider has reviewed the documentation as recorded by the Scribe Tyler Harris All medical record entries made by the Scribe were at my direction and personally dictated by me. I have reviewed the chart and agree that the record accurately reflects my personal performance of the history, physical exam, medical decision making, and the department course for this patient. I have also personally directed, reviewed, and agree with the discharge instructions and disposition. Physician Patient Turnover Patient Signed Over To: Kranthi Rabago Handoff Comments: Pending US
[2018-09-26 05:20] LABS: SQUAMOUS EPITHIAL 12 /hpf (0-5); URINE BACTERIA RARE (<OCC); URINE BILIRUBIN NEGATIVE (NEGATIVE); URINE BLOOD 3+ (NEGATIVE); URINE CLARITY Hazy (Clear); URINE COLOR Yellow (YELLOW); URINE GLUCOSE (UA) NORMAL (Normal); URINE LEUKOCYTE ESTERASE TRACE Leu/uL (Negative); URINE PROTEIN 1+ mg/dL (NEGATIVE)
[2018-09-26 05:23] LABS: BASO % 0.3 % (0.0-2.0); EOS # 0.1 K/uL (0.0-0.7); EOS % 1.7 % (0.0-4.0); LYMPH # 2.1 K/uL (1.0-4.3); LYMPH % 27.4 % (20.0-40.0); MEAN CELL VOLUME 91.7 fL (81.0-99.0); MEAN CORPUSCULAR HEMOGLOBIN 30.4 pg (27.0-31.0); MEAN CORPUSCULAR HGB CONC 33.2 g/dL (33.0-37.0); MEAN PLATELET VOLUME 8.4 fL (7.2-11.7); MONO # 0.5 K/uL (0.0-0.8); MONO % 6.3 % (0.0-10.0); NEUT % 64.3 % (50.0-75.0); NRBC % 0.1 % (0.0-2.0); RBC 3.96 Mil/uL (3.80-5.20); WHITE BLOOD COUNT 7.8 K/uL (4.8-10.8)
[2018-09-26 05:26] LABS: HCG,QUALITATIVE URINE POSITIVE (NEGATIVE)
[2018-09-26 05:32] LABS: ALBUMIN 4.6 g/dL (3.5-5.0); BLOOD UREA NITROGEN 12 mg/dL (7-17); CALCIUM 8.8 mg/dl (8.6-10.4); GFR NON-AFRICAN AMERICAN > 60
[2018-09-26 06:07] LABS: ALT/SGPT 18 U/L (9-52); AST/SGOT 22 U/L (14-36)
[2018-09-26 06:35] VITALS: PULSE 64; RESP 18; TEMP 97.8
[2018-09-26 07:59] VITALS: BP 103/63; O2SAT 96
--- NOTE | 2018-09-26 08:47 | US ---
Date of service: 09/26/2018 PROCEDURE: OB Pelvic Ultrasound HISTORY: vag bleed LMP: 07/21/2018 COMPARISON: Comparison is made to the previous study dated 09/20/2018 FINDINGS: UTERUS: Gestational sac: Intrauterine gestational sac again noted. Heart rate: 0 bpm. age (Ultrasound estimated): 6 weeks 2 days +/-0 weeks 3 days Mary-gestational hemorrhage: Subchorionic hemorrhage is noted measures 1.09 x 0.38 x 0.9 centimeter. Date of delivery (Ultrasound estimated) : 05/20/2019 Uterus measures 13.6 x 6.4 x 8.2 cm. Again noted are multiple soft tissue lesions in the uterus likely represent fibroids. The largest presumed fibroid is seen at the uterine fundus measures 6.8 x 6.6 x 8.1 centimeter. CERVIX: Measures 3.3 cm. Long and closed. No cervical abnormality seen. RIGHT OVARY: Measures 2.8 x 1.5 x 2.2 cm. No mass lesion. Normal flow. LEFT OVARY: Measures 2.6 x 1.8 x 2.3 cm. No solid mass. Normal flow. FREE FLUID: None. OTHER FINDINGS: None. IMPRESSION: Abnormal intrauterine gestational sac again noted contains low-level echoes. Abnormal mildly enlarged yolk sac. No heart motion detected in this exam. The possibility of demise should be considered. Correlation with beta HCG level is suggested. Heterogeneous enlarged uterus contains fibroids. Redemonstrated is subchorionic hemorrhage.
== END 2018-09-26 09:32 | disposition home or self-care (01) ==
LOC: C.ER 04:05
DX: O03.9 Complete or unspecified spontaneous abortion without complication (principal)
CPT/HCPCS: 76805; 76817; 80053; 81001; 84702; 84703; 85025; 86850; 86900; 96360; 99285; J7030